=== PATIENT | female | born 1950 | race African-American/Black ===

== ENCOUNTER → 2021-05-11 | Day surgery (SDC) | payer MEDICARE ==
[~2021-05-11] VITALS: Ht 160 cm; Wt 188.0 kg
[~2021-05-11] MED LIST: ALBU2.5V8 INH; CANA100T PO; CITA40TA5 PO; DICL100G54 TP; HYDR-3135 PO; IV RINGERS,LACTATED 1000ML 1,000 ML IV ONE; LIDOCAINE 2% PF 5 ML VIAL. ONE; LISI1TAB37 PO; MECL12.582 PO; METF500T16 PO; METO-239 PO; MOME17SP NS; ONDA4TAB12 PO; PANT40TA77 PO; PROPOFOL 10 MG/ML (20ML) VIAL. IV ONE; RANI150C PO; REPA2TAB7 PO; SAXA5TAB PO; SIMV40TA18 PO; SITA100T PO; TIZA4TAB2 PO
[2021-05-11 07:00] VITALS: BP 135/64
[2021-05-11 08:36] VITALS: BP 127/76
--- NOTE | 2021-05-13 13:13 | PATHOLOGY ---
[facility] Accession Number: [id number] . 01 Material submitted: . splenic flexure - SPLENIC FLEXURE POLYP . 01 Clinical history: . N/V, BLOATING/[facility] EGD COLON POLYP NAUSEA, BLOATING, [facility] . 02 Diagnosis: Colon biopsies, splenic flexure polyp: - Tubular adenoma. (JPM:[facility]; 05/13/2021) [facility] [place] 1205 Local . 02 Comment: There is no high grade dysplasia or evidence of malignancy. (JPM:annalisa; 05/13/2021) . 02 Electronically signed: . Sanjeev Pal MD, Pathologist NPI- [id number] . 01 Gross description: . The specimen is received in formalin, labeled "Gregor Birdamaris, splenic flexure polyp". Received are 4 segments of pale valdez tissue ranging in size from 0.1 to 0.5 cm in maximum dimensions. The specimen is submitted entirely in cassette A1.([facility]; 05/12/2021) [facility] 05/12/2021 1306 Local . 02 Pathologist provided ICD-10: D12.3 . 02 CPT . 756272 Specimen Comment: A courtesy copy of this report has been sent to [phone], [phone] Specimen Comment: [phone] Specimen Comment: Report sent to / DR AKHTAR Performed at: 01 [facility] [address], [place] [id number] MD Devendra Walters MD Phone: [phone] Performed at: 02 [facility] [address] [place], [place] [id number] MD Sanjeev Pal MD Phone: [phone]
== END | disposition home or self-care (01) ==
LOC: ENDOS 06:26
PROVIDERS: ATTEND Internal Medicine Gastroenterology
DX: R19.4 Change in bowel habit (principal); D12.3 Benign neoplasm of transverse colon; K63.89 Other specified diseases of intestine; K64.0 First degree hemorrhoids; K44.9 Diaphragmatic hernia without obstruction or gangrene; R11.0 Nausea; K31.89 Other diseases of stomach and duodenum; K21.9 Gastro-esophageal reflux disease without esophagitis; E78.00 Pure hypercholesterolemia, unspecified; J45.909 Unspecified asthma, uncomplicated; G47.30 Sleep apnea, unspecified; E11.9 Type 2 diabetes mellitus without complications; F41.9 Anxiety disorder, unspecified; F32.9 Major depressive disorder, single episode, unspecified; Z90.710 Acquired absence of both cervix and uterus; Z98.890 Other specified postprocedural states; Z79.899 Other long term (current) drug therapy; Z88.0 Allergy status to penicillin; Z88.1 Allergy status to other antibiotic agents; Z88.2 Allergy status to sulfonamides; Z91.041 Radiographic dye allergy status; Z88.8 Allergy status to other drugs, medicaments and biological substances
CPT/HCPCS: 43235; 45380; J2704; 88305